=== PATIENT | male | born 1950 | race Two or more races ===

== ENCOUNTER 2018-05-25 06:06 | Emergency (ER) | payer OTHER ==
[2018-05-25 06:35] VITALS: TEMP 98.1; BMI 28.3
--- NOTE | 2018-05-25 06:46 | PDOC ---
History of Present Illness - General Chief Complaint: Chest Pain Stated Complaint: UNCONFIRMED SYNCOPE Time Seen by Provider: 05/25/18 06:38 History Source: Patient - History of Present Illness Initial Comments: 05/25/18 06:39 Pt with history of DM, HTN, high cholesterol presents to the ED complaining of syncope today. As per patient and family, he has been experiencing several days of chest pain and cough. Patient had syncope after a prolonged coughing fit today. Denies nausea and vomiting or shortness of breath. Complaining of mild, L sided constant chest pain. Past History - Past Medical History Allergies/Adverse Reactions: Allergies Allergy/AdvReac Type Severity Reaction Status Date / Time No Known Allergies Allergy Verified 05/25/18 06:35 - Suicide/Smoking/Psychosocial Hx Smoking History: Never smoked Have you smoked in the past 12 months: No Information on smoking cessation initiated: No Hx Alcohol Use: No Drug/Substance Use Hx: No Review of Systems - Review of Systems Able to Perform ROS?: Yes Is the patient limited Ghanaian proficient: No Constitutional: Yes: See HPI, Chills, Fever HEENTM: No: Symptoms Reported, See HPI, Eye Pain, Blurred Vision, Tearing, Recent change in vision, Double Vision, Cataracts, Ear Pain, Ocular Prothesis, Ear Discharge, Nose Pain, Nose Congestion, Tinnitus, Nose Bleeding, Hearing Loss , Throat Pain, Throat Swelling, Mouth Pain, Dental Problems, Difficulty Swallowing, Mouth Swelling, Other Respiratory: Yes: Cough Cardiac (ROS): Yes: Chest Pain, Syncope ABD/GI: Yes: Nausea, Vomiting : No: Symptoms Reported, See HPI, Burning, Dysuria, Discharge, Frequency, Flank Pain, Hematuria, Incontinence, Pain, Urgency, Testicular Mass, Testicular Swelling, Lesions, Testicular Pain, Other Musculoskeletal: No: Symptoms Reported, See HPI, Back Pain, Gout, Joint Pain, Joint Swelling, Muscle Pain, Muscle Weakness, Neck Pain, Joint Stiffness, Other Integumentary: No: Symptoms Reported, See HPI, Bruising, Change in Color, Change in Hair/Nails, Dryness, Erythema, Flushing, Lesions, Lumps, Pallor, Pruritus, Rash, Sweating, Other Neurological: No: Symptoms reported, See HPI, Headache, Numbness, Paresthesia, Pre-Existing Deficit, Seizure, Tingling, Tremors, Weakness, Unsteady Gait, Ataxia, Dizziness, Other Psychiatric: No: Anxiety, Depression, Frequent Crying, Stressors, Sleep Pattern Change, Emotional Problems, Mood Swings, Change in Appetite, Other *Physical Exam - Vital Signs Last Vital Signs Temp Pulse Resp BP Pulse Ox 98.1 F 105 H 18 159/78 98 05/25/18 06:06 05/25/18 06:06 05/25/18 06:06 05/25/18 06:06 05/25/18 06:06 Moderate Sedation - Procedure Monitoring Vital Signs: Procedure Monitoring Vital Signs Temperature 98.1 F 05/25/18 06:06 Pulse Rate 105 H 05/25/18 06:06 Respiratory Rate 18 05/25/18 06:06 Blood Pressure 159/78 05/25/18 06:06 O2 Sat by Pulse Oximetry (%) 98 05/25/18 06:06 Medical Decision Making - Medical Decision Making 05/25/18 06:49 PT presents to the ED complaining of syncope and mild L sided chest pain. REcent history of URI with persistent cough. EKG shows no evidence of ischemia. Differential includes ACS, PNA, dehydration, vasovagal syncope, less likely CHF. Will check labs and CXR, cardiac enzymes, less likely CHF. Will admit to medicine for syncope work up. *DC/Admit/Observation/Transfer - Discharge Dispostion Condition at time of disposition: Fair - Referrals - Patient Instructions - Post Discharge Activity
--- NOTE | 2018-05-25 07:10 | PDOC ---
*Physical Exam - Vital Signs Last Vital Signs Temp Pulse Resp BP Pulse Ox 98.1 F 105 H 18 159/78 98 05/25/18 06:06 05/25/18 06:06 05/25/18 06:06 05/25/18 06:06 05/25/18 06:06 ED Treatment Course - LABORATORY CBC & Chemistry Diagram: 05/25/18 07:09 05/25/18 07:09 Medical Decision Making - Medical Decision Making 05/25/18 07:08 Sign out received from Dr Fisher. Edmund Wellington is a 67yo man with a PMH HTN, DM, HLD who presents with syncope after an episode of coughing, symptoms of a viral URI, now reporting left-sided chest pain. - In NAD at arrival but noted to be tachycardic - EKG completed, NSR without abnormalities - CXR completed, will review when available - Labs pending 05/25/18 07:32 - Influenza test ordered - CXR reviewed. No acute pathology noted 05/25/18 08:39 - Labs reviewed. Notable for lactate 2.2, 1L NS ordered. Influenza A positive. Chemistry and CBC otherwise unremarkable. - Tamiflu ordered - Will need admission for syncope workup. PMD is Dr Savage 05/25/18 08:56 - After discussion, Mr Wellington declines admission. He and his family understand the reason admission is recommended, and he would still prefer to be discharged. Will leave AMA - Will d/c with medication for cough. Discussed with Dr Augusto Fu PGY1 *DC/Admit/Observation/Transfer Diagnosis at time of Disposition: Influenza A, Syncope - Discharge Dispostion Disposition: AGAINST MEDICAL ADVICE Condition at time of disposition: Fair Decision to Admit order: No - Referrals Referrals: [facility] [place] [Provider Group] - Patient Instructions Printed Discharge Instructions: DI for Influenza -- Adult Additional Instructions: Discharge Instructions: You were seen in the emergency department for cough and syncope (fainting). You were diagnosed with influenza A. You were advised to stay in the hospital for additional workup of your fainting episode. Home Care: - Make sure you are drinking plenty of fluids. While you are sick, it is OK if you are not eating much as long as you stay hydrated - You have been prescribed a cough medication. You may use this as needed; follow the directions on the prescription for dosing. - You may use acetaminophen (Tylenol) 650-1000mg or ibuprofen (Motrin, Advil) 600mg every 6-8 hours as needed for fever or discomfort. - Do not go back to work until you have been fever-free and no longer coughing for at least 48 hours Follow Up: - Make an appointment to see your regular doctor within the next week if your symptoms do not improve. If you need to establish care with a doctor, you have been referred to the [facility] [place] clinic. - Seek immediate medical care if you have worsening symptoms, additional episodes of fainting, difficulty breathing, worsening chest pain, weakness, lightheadedness, dehydration, or any other medical emergency - Post Discharge Activity
[2018-05-25 07:26] LABS: BASO % 0.4 % (0-2.0); EOS % 0.9 % (0-4.5); HEMATOCRIT 45.1 % (35.4-49); HEMOGLOBIN 15.6 GM/dL (11.7-16.9); LYMPH % 8.7 % (8-40); MCH 32.1 pg (25.7-33.7); MCHC 34.6 g/dl (32.0-35.9); MEAN CELL VOLUME 92.8 fl (80-96); MEAN PLT VOLUME 8.9 fl (7.5-11.1); MONO % 15.1 % (3.8-10.2); NEUT % 74.9 % (42.8-82.8); PLATELET COUNT 126 K/MM3 (134-434); RBC 4.86 M/mm3 (4.00-5.60); RDW 13.2 % (11.9-15.9); WHITE BLOOD COUNT 8.9 K/mm3 (4.0-10.0)
[2018-05-25 08:06] LABS: ALBUMIN 3.8 g/dl (3.4-5.0); ALK PHOS 82 U/L (45-117); ANION GAP 9 MMOL/L (8-16); BILIRUBIN,TOTAL 0.6 mg/dL (0.2-1); BLOOD UREA NITROGEN 15 mg/dL (7-18); CALCIUM 8.8 mg/dL (8.5-10.1); CHLORIDE 102 mmol/L (98-107); CO2 24 mmol/L (21-32); CREATININE 1.2 mg/dL (0.55-1.3); GLUCOSE,RANDOM 210 mg/dL (74-106); SGOT/AST 28 U/L (15-37); SGPT/ALT 63 U/L (13-61); SODIUM 135 mmol/L (136-145); TOT PROT 7.6 g/dl (6.4-8.2)
[2018-05-25] MEDS ORDERED: SODIUM CHLORIDE 0.9% 500 ML INFUS.BAG IV ONE (08:28)
[2018-05-25] MEDS ORDERED: OSELTAMIVIR PHOSPHATE 75 MG CAPSULE PO ONE (08:28)
[2018-05-25] MEDS ORDERED: OSELTAMIVIR PHOSPHATE 75 MG CAPSULE ONE (08:29)
[2018-05-25 09:48] VITALS: BP 138/79; PULSE 108
[2018-05-25 10:17] LABS: ANISOCYTOSIS 0; MACROCYTOSIS 0; PLATELET ESTIMATE NORMAL
[2018-05-25 11:00] LABS: URINE APPEARANCE Clear; URINE BILIRUBIN Negative (<2.0 mg/dL); URINE COLOR Yellow; URINE GLUCOSE (UA) 2+ (NEGATIVE); URINE KETONE 1+ (NEGATIVE); URINE LEUK ESTERASE Negative (NEGATIVE); URINE NITRITE Negative (NEGATIVE); URINE PROTEIN 2+ (NEGATIVE); URINE UROBILINOGEN 0.2 mg/dL (0.2-1.0)
--- NOTE | 2018-05-25 11:20 | EKG ---
Test Reason : Blood Pressure : / mmHG Vent. Rate : 103 BPM Atrial Rate : 103 BPM P-R Int : 160 ms QRS Dur : 088 ms QT Int : 334 ms P-R-T Axes : 040 004 032 degrees QTc Int : 437 ms SINUS TACHYCARDIA OTHERWISE NORMAL ECG NO PREVIOUS ECGS AVAILABLE Confirmed by ENE JEONG MD ([id number]) on 05/25/2018 11:19:50 AM Referred By: Confirmed By:ENE JEONG MD
[2018-05-25 13:29] LABS: EPI CELLS NONE SEEN /HPF (FEW); URINE BACTERIA NONE SEEN /hpf (NONE SEEN)
== END 2018-05-25 09:50 | disposition left against medical advice (07) ==
LOC: JER 06:06
DX: J09.X2 Influenza due to identified novel influenza A virus with other respiratory manifestations (principal); R55 Syncope and collapse; I10 Essential (primary) hypertension; E78.00 Pure hypercholesterolemia, unspecified; E11.9 Type 2 diabetes mellitus without complications
CPT/HCPCS: 36415; 71045-TC-FY; 80053; 81003; 81015; 82550; 83605; 84484; 85025; 87804; 93005; 93010; 99283-25